=== PATIENT | male | born 1960 | race Caucasian/White ===

== ENCOUNTER 2021-02-22 13:26 | Emergency (ER) | payer SELFPAY ==
[~2021-02-22] VITALS: Ht 180.3 cm; Wt 84.3 kg
[2021-02-22] MEDS ORDERED: MORPHINE 10 MG/ML 1ML VIAL (J2270) IM ONE (13:45)
[2021-02-22] MEDS ORDERED: BOOSTRIX/ADACEL VACCINE (DIPHTH/PERTUSS/ACELL/TETANUS) 0.5ML SYR IM ONE (14:05)
[2021-02-22] MEDS ORDERED: BACITRACIN OINTMENT 30GM TUBE TOP ONE (14:25)
[2021-02-22] MEDS ORDERED: BACI500O21 TOP (14:28)
[2021-02-22] MEDS ORDERED: XEROMIS EX (14:28)
[2021-02-22 15:13] VITALS: BP 175/99
== END 2021-02-22 15:13 | disposition home or self-care (01) ==
LOC: M ED 13:26
DX: T22.111A Burn of first degree of right forearm, initial encounter (principal); T22.112A Burn of first degree of left forearm, initial encounter; T21.22XA Burn of second degree of abdominal wall, initial encounter; X12.XXXA Contact with other hot fluids, initial encounter; Y92.018 Other place in single-family (private) house as the place of occurrence of the external cause
CPT/HCPCS: 96372; 99283; J2270

== ENCOUNTER → 2025-02-20 | Outpatient (CLI) | payer MEDICARE ==
[~2025-02-20] MED LIST: BACI500O21 TOP; XEROMIS EX
== END ==
LOC: M RAD 08:26
PROVIDERS: ATTEND Nurse Practitioner Family
DX: Z12.2 Encounter for screening for malignant neoplasm of respiratory organs (principal); F17.210 Nicotine dependence, cigarettes, uncomplicated; K76.89 Other specified diseases of liver; R91.8 Other nonspecific abnormal finding of lung field